=== PATIENT | male | born 1985 ===

== ENCOUNTER 2024-08-10 16:46 | Emergency (ER) | payer SELFPAY ==
[2024-08-10] MEDS: Acetaminophen/HYDROcodone 325-5 MG Tab PO ONE (18:27)
== END 2024-08-10 19:08 | disposition home or self-care (01) ==
LOC: MW.ED 16:46
DX: S92.412A Displaced fracture of proximal phalanx of left great toe, initial encounter for closed fracture (principal); M25.562 Pain in left knee; Z75.8 Other problems related to medical facilities and other health care; W19.XXXA Unspecified fall, initial encounter; Y93.01 Activity, walking, marching and hiking
CPT/HCPCS: 73562; 73610; 73630; 99283; A9270